=== PATIENT | male | born 1960 | race Caucasian/White ===

== ENCOUNTER 2017-03-15 11:59 | Emergency (ER) | payer OTHER ==
[~2017-03-15] VITALS: Ht 177.8 cm; Wt 74.7 kg
[~2017-03-15 11:59] MED LIST: NAPR1TAB9 PO
[2017-03-15 12:03] VITALS: TEMP 36.7; Ht 177.8 cm; Wt 74.7 kg
[2017-03-15] MEDS ORDERED: KETOROLAC TROMETHAMINE 60 MG/2 ML VIAL IM STA (12:28)
[2017-03-15] MEDS ORDERED: OXYCODONE HCL IR 5 MG TAB (IMMEDIATE RELEASE) PO STA (12:28)
--- NOTE | 2017-03-15 13:12 | DIAGNOSTIC IMAGING REPORT ---
LEFT PELVIS/UNILATERAL HIP 2-3VIEWS CLINICAL HISTORY: LEFT HIP PAIN COMPARISON STUDY: None. FINDINGS: No fracture or dislocation within the pelvis or hips. The sacrum is intact. Mild osteoarthritis within the bilateral hips. Soft tissues are unremarkable. IMPRESSION: Mild bilateral hip osteoarthritis. No fracture or dislocation within the pelvis or hips. Electronically signed by: Tamir Rivera M.D. 03/15/2017 1:10 PM Dictated Date/Time: 03/15/2017 1:09 PM
[2017-03-15] MEDS ORDERED: OXYC1TAB3 PO (13:41)
--- NOTE | 2017-03-15 13:42 | EMERGENCY ROOM VISIT NOTE ---
ED Visit Note First contact with patient: 12:17 CHIEF COMPLAINT: Left hip/buttock pain 6 days HISTORY OF PRESENT ILLNESS: Patient is a 56-year-old white male who presents to the emergency department for evaluation of pain in the left hip and buttock after an injury about 6 days ago. He was changing a flat tire, and pulled on a log not while using a wrench, twisting his back and hip lately. His initial pain was across his entire low back, but the pain has now settled or in the left hip/buttocks. He describes a burning pain in the left hip. He presently rates it an 8/10. It has progressively worsened, despite using heat, ice and Tylenol. He had difficulty getting comfortable in any position, and the pain kept him from sleeping last night. He states the pain radiates slightly down the left leg, there is no associated numbness, tingling, weakness or paresthesias. Pain does not radiate into the groin. He does not have any low back pain presently. He denies any bowel or bladder incontinence. No prior history of back or hip injuries. REVIEW OF SYSTEMS: Review of systems as per HPI. All other systems reviewed were negative. 10 systems reviewed. PMH: Electronic medical records are reviewed and summarized as above/below. See Problem List. SOCIAL HISTORY: Patient lives at home with his mother. He is self-employed as a contractor, does not smoke or drink alcohol. PHYSICAL EXAM: Vital Signs: Reviewed Nurse's notes. CONSTITUTIONAL: Patient is a pleasant, well-appearing 56-year-old white male who is awake and alert and in mild distress due to his stated complaint. He does have left hip/buttock discomfort with position changes. CARDIOVASCULAR: Regular rate and rhythm. Peripheral pulses easily palpable. RESPIRATORY: Breath sounds equal and clear to auscultation without wheezes, rales, or rhonchi heard. Full and equal chest expansion without accessory muscle use or retractions. ABDOMEN: Bowel sounds are present. Abdomen is soft, nontender and nondistended. INTEGUMENTARY: No lesions or rash, normal skin turgor. LYMPH: No lymphadenopathy. SPINE: Examination of the patient's back does not demonstrate any ecchymosis, abrasions or outward signs of trauma. No erythema, increased warmth or induration. Patient has no midline discomfort to palpation over the lumbar spinous processes, no paraspinous muscle tenderness. There is no pain over the SI joints or the sciatic notch. EXTREMITIES: Leg lengths are symmetrical. He has discomfort with logroll on the left. Normal strength including dorsi-flexion and plantar flexion of the great toes and ankles and flexion and extension of the knees and flexion of the hips. Straight leg raise testing does not induce any radicular symptoms, but he does have discomfort with left hip flexion, and internal and external rotation. He has reproducible discomfort to palpation in the lateral aspect of the left hip, just off of the iliac crest. There is no pain over the left greater trochanter, no pain in the left groin. There is no reproducible discomfort along the left IT band. Lower extremity DTRs are equal and symmetrical bilaterally. Distal pulses are easily palpable. Sensation light touch is intact over the lower extremities bilaterally. EMERGENCY DEPARTMENT COURSE: Patient was seen and evaluated as above. His old records were reviewed. He was medicated with Toradol 60 mg IM and oxycodone 10 mg orally. X-rays of the left hip and pelvis were obtained. Mild arthritic changes were noted. The patient was reassessed and made aware of the results of his diagnostic imaging studies. He did report relief of his discomfort with the above-mentioned medications and rated his pain a 4/10 at discharge. He was able to move more easily. The patient has reproducible discomfort in the lateral aspect of the left hip, and I suspect his injury is likely muscular or ligamentous in nature. His symptoms do not appear to be radicular, I do not suspect his back as the source, although this was considered. Fracture, labral tear, hernia, tendinitis and bursitis were also entertained. The patient was encouraged to follow-up with orthopedics if he does not feel that his symptoms are improving. He was given oxycodone to use for severe pain, and was encouraged to continue using anti-inflammatory medicine such as Aleve or ibuprofen. He was discharged home in good condition with a friend driving. Medication reconciliation: I attest that I have personally reviewed the patient' s current medication list. Patient was reviewed in the [facility] Prescription Drug Monitoring Program, and there was no record for this patient. Blood pressure screening: Patient was found to have a slightly elevated blood pressure due to circumstances. I do not believe that the patient requires hypertension monitoring. LEFT PELVIS/UNILATERAL HIP 2-3VIEWS CLINICAL HISTORY: LEFT HIP PAIN COMPARISON STUDY: None. FINDINGS: No fracture or dislocation within the pelvis or hips. The sacrum is intact. Mild osteoarthritis within the bilateral hips. Soft tissues are unremarkable. IMPRESSION: Mild bilateral hip osteoarthritis. No fracture or dislocation within the pelvis or hips. Current/Historical Medications Scheduled PRN Oxycodone Immediate Rel Tab (Roxicodone Ir), 1-2 TAB PO Q4H PRN for Severe Pain Allergies Coded Allergies: Aspirin (Verified Adverse Reaction, Unknown, GI SYMPTOMS, 03/15/17) Vital Signs Date Time Temp Pulse Resp B/P (MAP) Pulse Ox O2 Delivery O2 Flow Rate FiO2 03/15/17 13:52 63 18 167/99 97 03/15/17 12:03 36.7 57 18 132/89 99 Room Air Medications Administered Medications (Trade) Dose Ordered Sig/Sherie Route Start Time Stop Time Status Last Admin Dose Admin Ketorolac Tromethamine (Toradol Inj) 60 mg NOW STAT IM 03/15/17 12:28 03/15/17 12:29 DC 03/15/17 12:37 60 MG Oxycodone HCl (Roxicodone Immediate Rel Tab) 10 mg NOW STAT PO 03/15/17 12:28 03/15/17 12:29 DC 03/15/17 12:36 10 MG Departure Information Impression Primary Impression: Left hip pain Prescriptions Oxycodone Immediate Rel Tab (ROXICODONE IR) 5 Mg Tab 1-2 TAB PO Q4H Y for Severe Pain, #25 TAB For Initial Treatment Prov: Laney Givens PA 03/15/17 Referrals Chun Johnson M.D. (PCP) Patient Instructions My [facility] Additional Instructions DO NOT drive, drink alcohol, operate machinery, or perform dangerous activities today. You were given medications in the ER that can affect your ability to safely function or operate a vehicle. Oxycodone (OxyIR) 5mg: Take 1-2 pills every four hours for breakthrough pain. Avoid alcohol, operating machinery or dangerous equipment, working on ladders or roofs, DRIVING, or situations where being under the influence may be dangerous. It is recommended to use an [id number] stool softener such as Colace, 100mg twice daily while taking this medication to avoid constipation. Ibuprofen(Motrin, Advil) may be used for fever or pain. Use 600mg every six hours as needed. Take with food. Avoid using more than 2400mg in a 24 hour period. Do not use 2400mg per day for more than three consecutive days without physician direction. Prolonged inappropriate use can lead to stomach upset or ulcers. This medication can be taken if you need to drive, work, or perform activities which may be dangerous when taking narcotic pain medication. (AND/OR) Acetaminophen(Tylenol) may be used for fever or pain. Use 1000mg every six hours as needed. Avoid using more than 3000mg in a 24 hour period. This medication can be taken if you need to drive, work, or perform activities which may be dangerous when taking narcotic pain medication. Ice compresses for 20 minutes at a time four times daily for 2-3 days. Rest and elevate your injury. Continue current medications. Return to the ER immediately for any numbness, tingling, severe pain, extreme swelling in the extremity or as needed. Follow up with your primary care physician or with orthopedics if you do not feel that your symptoms are improving in the next 3-5 days.
[2017-03-15 13:52] VITALS: BP 167/99; PULSE 63; O2SAT 97
== END 2017-03-15 13:52 | disposition home or self-care (01) ==
LOC: C.EDB 12:01 → C.EDD 13:52
DX: M25.552 Pain in left hip (principal)